=== PATIENT | male | born 1950 | race Caucasian/White ===

== ENCOUNTER 2019-06-17 09:25 | Outpatient (CLI) | payer MEDICARE, SELFPAY ==
--- NOTE | 2019-06-17 09:30 | ECG_ITS ---
Measurements Intervals [place] Rate: 62 P: 55 DE: 216 QRS: 3 QRSD: 102 T: 42 QT: 373 QTc: 380 Interpretive Statements SINUS RHYTHM WITH FIRST DEGREE AV BLOCK DELAYED PRECORDIAL R/S TRANSITION BASELINE ARTIFACT- I, II, AVR, AVL ABNORMAL ECG Electronically Signed On 06-17-2019 9:41:22 [employer]APANESE TUTOR by Sincere Bob D.O.
== END 2019-06-17 09:26 | disposition home or self-care (01) ==
LOC: ANHSURGERY 09:30
PROVIDERS: PCP Family Medicine; Visit Provider Surgery
DX: E78.00 Pure hypercholesterolemia, unspecified (principal); I44.0 Atrioventricular block, first degree
CPT/HCPCS: 93005

== ENCOUNTER 2019-07-01 01:18 | Day surgery (SDC) | payer MEDICARE, SELFPAY ==
[2019-06-12 12:55] VITALS: BMI 27.1
--- NOTE | 2019-07-01 06:57 | PM.SD ---
Same Day Admit/Disch: HPI History of Present Illness Chief complaint: Left Inguinal Hernia Narrative: Blue Delgadillo is a 68 year old male Who started having left testicular discomfort with some numbness in early April. he was seen in the office and found to have a left inguinal hernia. He had a right inguinal hernia repaired in 2009. Patient has as history of BPH was started on Flomax a week prior to the surgery. He is taken to surgery today for left inguinal hernia repair. [facility] Past Medical History Medical History BPH loc w/o ur obs/LUTS Dyslipidemia Lumbar radiculopathy Surgical History Surgical History H/O foot surgery Repair fracture left food with pin placement - 2008 History of left inguinal hernia repair History of tonsillectomy Family History Family History Father Kidney cancer, primary, with metastasis from kidney to other site Mother Parkinsons Other Carcinoma of colon Social History Social History Smoking status: Never smoker Second hand tobacco smoke exposure: No Alcohol intake: current Drinks per week: 3 Substance use: never Substance use type: does not use Gender identity (if verbalized by the patient): Male Spiritual care concerns: Yes Agree to blood products: Yes Same Day Admit/Disch: Med Pre-admit Medications Home Medications Medication Instructions Recorded Confirmed Type finasteride 5 mg tablet 5 mg PO DAILY 03/17/19 07/01/19 History pravastatin 40 mg tablet 40 mg PO DAILY 03/17/19 07/01/19 History tramadol 50 mg tablet 50 mg PO Q6H PRN 03/17/19 07/01/19 History sulindac 200 mg tablet 200 mg PO BID PRN #60 tablet 05/15/19 07/01/19 Rx docusate sodium 250 mg PO DAILY 06/12/19 07/01/19 History tamsulosin 0.4 mg capsule 0.4 mg PO DAILY #30 cap 06/12/19 07/01/19 Rx hydrocodone-acetaminophen 1 - 2 tablet PO Q6H PRN #7 tablet 07/01/19 Rx ibuprofen 600 mg PO Q6H PRN #14 tablet 07/01/19 Rx Exam Const: General: comfortable, no acute distress, alert and awake HENMT: Head: normocephalic and atraumatic Mouth: Yes Normal oral and palatal mucosa present Eyes: Conjunctivae: conjunctivae normal Pupils: Equal, round and reactive pupils present EOM: EOMs intact bilaterally Neck: Neck: normal visual inspection, no lymphadenopathy and nontender Resp: Effort & Inspection: normal respiratory effort Auscultation: clear to auscultation bilaterally Cardio: Rate: regular rate Rhythm: regular rhythm Heart sounds: no gallops, no murmurs and no rubs GI: Inspection: non-distended GI Palp: Yes Soft to palpation, No Tenderness to palpation present (GI), No Hepatomegaly present and No Splenomegaly present : Male General Exam: Yes hernia ( Small reducible left inguinal hernia) Penis: Yes normal penis Scrotum: scrotum normal Testes: Testes normal Skin: Lesions: no lesions Rashes: no rashes Neuro: General: no focal motor deficits and CN's II-XI intact bilaterally Cranial nerves: Yes Equal, round and reactive pupils present, Yes Bilaterally intact EOM present, Yes facial symmetry and Yes Midline tongue present Speech: normal speech Motor exam (neuro): 5/5 motor strength present throughout and Motor abnormalities not present Extrem: General: no clubbing, cyanosis or edema and edema Psych: Affect: normal affect Thought process: Normal thought process present Insight: Good insight present (Psych) DS: Summary Time Spent with Patient Time attestation: Total time spent providing and/or coordinating discharge services: DS: Diagnosis Admitting Diagnosis Admitting Diagnosis: Pure hypercholesterolemia, unspecified Discharge Diagnosis (1) Left inguinal hernia: Code(s): K40.90 - Unilateral inguinal hernia, without obstruction or gangrene, not specified as
[2019-07-01 08:07] VITALS: BP 122/77; PULSE 61; RESP 16; TEMP 36; O2SAT 100
[2019-07-01] MEDS: LACTATED RINGERS 1,000 ML 30 ML IV CONT ×2 (08:30→11:20)
--- NOTE | 2019-07-01 09:30 | WPDANESEPPF ---
Anes - Initial Pre Proc Eval Procedure: Operation Date: 07/01/19 10:00 Proposed Procedures p Left Inguinal Hernia Repair - Olegario Heredia MD Date/Time: 07/01/19 09:30 Surgeon: Olegario Heredia MD Pre Op Diagnosis: Left Inguinal Hernia Patient Data Age: 68 Gender: M Height: 6 ft Weight: 92.8 kg Last Vital Signs Temp 96.8 F L 07/01/19 08:07 Pulse 61 07/01/19 08:07 Resp 16 07/01/19 08:07 BP 122/77 07/01/19 08:07 Pulse Ox 100 07/01/19 08:07 Allergies Allergy/AdvReac Type Severity Reaction Status Date / Time No Known Allergies Allergy Mild Verified 07/01/19 08:41 Home Medications Medication Instructions Recorded Confirmed Type finasteride 5 mg tablet 5 mg PO DAILY 03/17/19 07/01/19 History pravastatin 40 mg tablet 40 mg PO DAILY 03/17/19 07/01/19 History tramadol 50 mg tablet 50 mg PO Q6H PRN 03/17/19 07/01/19 History sulindac 200 mg tablet 200 mg PO BID PRN #60 tablet 05/15/19 07/01/19 Rx docusate sodium 250 mg PO DAILY 06/12/19 07/01/19 History tamsulosin 0.4 mg capsule 0.4 mg PO DAILY #30 cap 06/12/19 07/01/19 Rx Patient hx anesthesia problems: none Family hx anesthesia problems: none PMFSH Past Medical History Medical History BPH loc w/o ur obs/LUTS Dyslipidemia Lumbar radiculopathy Surgical History Surgical History H/O foot surgery Repair fracture left food with pin placement - 2008 History of left inguinal hernia repair History of tonsillectomy Family History Family History Father Kidney cancer, primary, with metastasis from kidney to other site Mother Parkinsons Other Carcinoma of colon Social History Social History Smoking status: Never smoker Second hand tobacco smoke exposure: No Alcohol intake: current Drinks per week: 3 Substance use: never Substance use type: does not use Gender identity (if verbalized by the patient): Male Spiritual care concerns: Yes Agree to blood products: Yes Anes - Eval Final PreProcedure Day of Procedure 07/01/19 09:30 Patient weight: overweight Heart: regular rate and rhythm Lungs: clear to auscultation Airway: Mallampati scale class II Neurological: alert and oriented Last oral intake: >/= 8 hours ASA classification: II Emergent: no Anesthetic plan: proceed Anesthesia type and monitoring: general GIVS and standard monitoring Informed Consent: The patient's anesthetic plan and its attendant risks and benefits were discussed with the patient/family/POA. Questions were solicited and answers provided to the satisfaction of the patient/family/POA.
[2019-07-01] MEDS: ceFAZolin 2 GM/D5W 50 ML 2 GM/50 ML BAG IVPB (10:08)
[2019-07-01 11:20] VITALS: BP 103/65; PULSE 71; O2SAT 93
--- NOTE | 2019-07-01 11:23 | PM.PROC ---
Procedure Note - Detailed Date of procedure: 07/01/19 Pre-op diagnosis: Left Inguinal Hernia Left inguinal hernia Post-op diagnosis: other (Direct inguinal hernia) Procedure performed: Bassini repair left inguinal hernia Description of procedure: The patient was taken to surgery and IV sedation was administered. The left groin and genitalia were prepped and draped. The proposed incision was marked on the skin and then local anesthesia was infiltrated into the skin and the deeper subcutaneous tissues. Incision was made and dissection was carried down through Susan's fascia to the external oblique aponeurosis. Crossing veins were cauterized and divided. The external oblique aponeurosis was then exposed as was the external ring. Additional local anesthetic was infiltrated deep to the aponeurosis in the area of the spermatic cord and inguinal canal contents. We then opened the external oblique aponeurosis laterally and extended this incision medially through the external ring. The leaves of the aponeurosis were freed from the underlying inguinal canal contents. Care was taken not to injure the ileoinguinal nerve which was dissected out and left attached to the spermatic cord. The spermatic cord was then mobilized medially on a Tyrese drain. It was mobilized back to the internal ring. The direct hernia was dissected free from the spermatic cord. It was dissected back to its neck. It was a very large direct inguinal hernia encompassing almost the entire direct inguinal space. The sac was then incised circumferentially just off the neck. It was divided through the transversalis fascia circumferentially. The hernia sac was then dunked into the retroperitoneum. The inguinal canal floor was then reconstructed with interrupted sutures of 0 Ethibond. The sutures started medially and proceeded laterally. They were interrupted sutures that sutured the transversalis fascia to 1st the pubic tubercle, then to the reflection of the inguinal ligament. Sutures were placed until the internal ring was reconstructed such that it would barely admit the tip of a clamp. The spermatic cord and ileoinguinal nerve were then placed back in the inguinal canal floor. The external oblique aponeurosis was closed with interrupted 3 0 Vicryl suture. Susan's fascia was closed with interrupted 3 0 Vicryl suture. Four 0 Vicryl subcutaneous and subcuticular skin stitches were placed. The skin was finally closed with a running 4 0 Monocryl skin suture. The wound was dressed with Exofin surgical adhesive. Patient was awakened and taken to recovery in good condition. Sponge and needle counts were correct x2. Anesthesia: MAC and local (0.5% Marcaine mixed with Exparel) Surgeon: Olegario Heredia MD Fraud Analyst: Akiko CASTANON Estimated blood loss (mL): 5 Drains: No Packing: No Pathology: none sent Complications: None Condition: stable Disposition: same day Findings: Large direct inguinal hernia
[2019-07-01 11:50] VITALS: BP 106/66; PULSE 64
[2019-07-01 12:20] VITALS: BP 134/76; PULSE 59
[2019-07-01 12:50] VITALS: BP 128/78; PULSE 66
== END 2019-07-01 13:00 | disposition home or self-care (01) ==
PROVIDERS: PCP Family Medicine; Visit Provider Surgery
PROC: (CPT 49505; principal; 2019-07-01 10:00)
DX: K40.90 Unilateral inguinal hernia, without obstruction or gangrene, not specified as recurrent (principal); E78.5 Hyperlipidemia, unspecified; N40.0 Benign prostatic hyperplasia without lower urinary tract symptoms
CPT/HCPCS: 49505; A9270; C9290; J0690; J2250; J2405; J2704; J3010; J7120

== ENCOUNTER 2019-07-15 12:09 | Day surgery (SDC) | payer MEDICARE, SELFPAY ==
[2019-07-14 09:55] VITALS: BMI 26.9
[2019-07-15 11:57] VITALS: BP 135/84; PULSE 64; RESP 16; TEMP 36.5; O2SAT 100
[2019-07-15] MEDS: LACTATED RINGERS 1,000 ML 30 ML IV CONT (12:05)
--- NOTE | 2019-07-15 12:15 | WPDHPUPDATE1 ---
History and Physical Update Update Date/Time: 07/15/19 12:15 History and Physical has been reviewed, including an updated exam of the patient. There are NO changes in the patient's condition. Risks, benefits, and alternatives have been discussed and questions answered. Patient agrees to proceed with procedure.
--- NOTE | 2019-07-15 12:16 | WPDANESEPPF ---
Anes - Initial Pre Proc Eval Procedure: Operation Date: 07/15/19 14:00 Proposed Procedures p Evacuation Left Groin Hematoma - Olegario Heredia MD Date/Time: 07/15/19 12:16 Surgeon: Olegario Heredia MD Pre Op Diagnosis: Left Groin Post Op Hematoma Patient Data Age: 68 Gender: M Height: 6 ft Weight: 90 kg Allergies Allergy/AdvReac Type Severity Reaction Status Date / Time No Known Allergies Allergy Mild Verified 07/15/19 12:08 Home Medications Medication Instructions Recorded Confirmed Type finasteride 5 mg tablet 5 mg PO DAILY 03/17/19 07/15/19 History pravastatin 40 mg tablet 40 mg PO DAILY 03/17/19 07/15/19 History tramadol 50 mg tablet 50 mg PO Q6H PRN 03/17/19 07/15/19 History sulindac 200 mg tablet 200 mg PO BID PRN #60 tablet 05/15/19 07/15/19 Rx docusate sodium 250 mg PO DAILY 06/12/19 07/15/19 History tamsulosin 0.4 mg capsule 0.4 mg PO DAILY #30 cap 06/12/19 07/15/19 Rx ibuprofen 600 mg PO Q6H PRN #14 tablet 07/01/19 07/15/19 Rx Patient hx anesthesia problems: none Family hx anesthesia problems: none PMFSH Past Medical History Medical History BPH loc w/o ur obs/LUTS Dyslipidemia Lumbar radiculopathy Surgical History Surgical History H/O foot surgery Repair fracture left food with pin placement - 2008 History of left inguinal hernia repair History of tonsillectomy Family History Family History Father Kidney cancer, primary, with metastasis from kidney to other site Mother Parkinsons Other Carcinoma of colon Social History Social History Smoking status: Never smoker Second hand tobacco smoke exposure: No Alcohol intake: current Drinks per week: 3 Substance use: never Substance use type: does not use Gender identity (if verbalized by the patient): Male Spiritual care concerns: Yes Agree to blood products: Yes Anes - Eval Final PreProcedure Day of Procedure 07/15/19 12:16 Patient weight: overweight Heart: regular rate and rhythm Lungs: clear to auscultation Airway: Mallampati scale class II Neurological: alert and oriented Last oral intake: >/= 8 hours ASA classification: II Emergent: no Anesthetic plan: proceed Anesthesia type and monitoring: general GIVS and standard monitoring Informed Consent: The patient's anesthetic plan and its attendant risks and benefits were discussed with the patient/family/POA. Questions were solicited and answers provided to the satisfaction of the patient/family/POA.
--- NOTE | 2019-07-15 12:17 | P.OP_ITS ---
Procedure Note - Detailed Date of procedure: 07/15/19 Pre-op diagnosis: Left Groin Post Op Hematoma Postop hematoma left groin Post-op diagnosis: same Procedure performed: Evacuation left inguinal hematoma Description of procedure: The patient was taken to surgery and IV sedation was administered. Prep and drape was carried out. Local anesthesia was infiltrated over the old incision and into the deeper subcutaneous tissues. The previous incision was then opened reopened. Subcutaneous sutures were removed and the subcutaneous was opened as well. We then encountered the hematoma which was above the external oblique aponeurosis but deep to the subcutaneous closure. The hematoma was evacuated. There was probably 150 cc of hematoma. Once the hematoma was evacuated, we irrigated the area. I looked carefully for a site of bleeding and did not find one. It had most likely sealed with the pressure from the hematoma. We irrigated the area further. No evidence of bleeding or other problems was noted. A 19 [place] Rodrick drain was then placed over the external oblique aponeurosis closure. It was brought out through a separate stab incision after local was infiltrated at the site of its exit. The drain was sutured to the skin with 2 0 silk. The wound was then closed with subcutaneous interrupted 3 0 Vicryl suture. A more superficial subcutaneous interrupted 3 0 Vicryl suture layer was then closed. Finally, subcuticular interrupted 4 O Vicryl skin stitches were placed. Xeroform gauze and fluffs with Medipore tape were used to dress the wound. The drain was placed to bulb suction. Patient was awakened and taken to recovery in good condition. Sponge and needle counts were correct x2. Anesthesia: MAC and local (0.5% Marcaine with epinephrine) Surgeon: Olegario Heredia MD Apprentice Photographer: KINA Eid Estimated blood loss (mL): 5 Drains: Yes (19 [place] Rodrick drain) Packing: No Pathology: none sent Complications: None Condition: stable Disposition: same day Findings: Left groin hematoma
[2019-07-15] MEDS: ceFAZolin 2 GM/D5W 50 ML 2 GM/50 ML BAG IVPB (12:18)
[2019-07-15] MEDS: BUPIVACAINE/EPINEPHRINE 0.5% 30 ML VIAL INFILTRATE (12:21)
--- NOTE | 2019-07-15 13:00 | SUR.OPER ---
EBL:5CC
[2019-07-15 13:10] VITALS: BP 103/69; PULSE 62; RESP 12; O2SAT 99
[2019-07-15 13:40] VITALS: BP 105/68; PULSE 62; O2SAT 97
[2019-07-15 14:10] VITALS: BP 114/81; PULSE 59
== END 2019-07-15 14:33 | disposition home or self-care (01) ==
PROVIDERS: PCP Family Medicine; Visit Provider Surgery
PROC: (CPT 10140; principal; 2019-07-15 14:00)
DX: L76.34 Postprocedural seroma of skin and subcutaneous tissue following other procedure (principal); Y83.8 Other surgical procedures as the cause of abnormal reaction of the patient, or of later complication, without mention of misadventure at the time of the procedure; E78.5 Hyperlipidemia, unspecified; N40.0 Benign prostatic hyperplasia without lower urinary tract symptoms
CPT/HCPCS: 10140; A9270; J0690; J2250; J2270; J2704; J7120

== ENCOUNTER 2024-09-03 07:49 | Outpatient (CLI) | payer MEDICARE, SELFPAY ==
--- OUTSIDE RECORDS SUMMARY | 2024-09-03 07:59 | XMS_ITS | Clinical Summary ---
Author Organization [facility] Address [address] [place] [address] Care Team Providers Care Toby Maker Name Role Phone Emmanuelle Garrido MD Primary Care Provider Allergies No known active allergies Medications pravastatin (PRAVACHOL) 40 mg tablet 03/08/2017 Active sulindac (CLINORIL) 200 mg tablet 03/08/2017 Active traMADol (ULTRAM) 50 mg tablet 02/19/2017 Active finasteride (PROSCAR) 5 mg tabletIndication s:benign prostatic hyperplasia with lower urinary tract sx Take 5 mg by mouth daily. 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/2021 Assessment & Plan (11/09/2021 8:42 AM CDT): Pepcid 40 mg at bedtime Call for GI referral if no improvement in 2-3 months Dysfunction of both eustachian tubes 11/09/2021 Assessment & Plan (11/09/2021 8:42 AM CDT): Pepcid 40 mg at bedtime Call for GI referral if no improvement in 2-3 months Sensorineural hearing loss ( SNHL) of left ear with restricted hearing of right ear 01/18/2021 Assessment & Plan (11/09/2021 8:42 AM CDT): Continue Hearing aids Assessment & Plan (01/18/2021 2:37 PM CDT): Proceed with Hearing Aid consultation Avoid ear cleaning techniques Impacted cerumen of left ear 01/18/2021 Assessment & Plan (01/18/2021 2:37 PM CDT): Proceed with Hearing Aid consultation Avoid ear cleaning techniques Bilateral hearing loss 06/24/2020 Assessment & Plan (06/24/2020 10:27 AM CYTOTECHNOLOGIST/HISTOTECHNOLOGIST): Hearing test - Oneil Chapman Bilateral impacted cerumen 06/24/2020 Surgical History Surgery Date Site/Laterality Comments HERNIA REPAIR 04/23/2008 - 04/22/2009 ANKLE FRACTURE SURGERY 04/23/2008 - 04/22/2009 Left COLONOSCOPY 2009 POLYPECTOMY Medical History Medical History Date Comments Colon polyp Family History Medical History Relation Name Comments Kidney cancer Father Relation Name Status Comments Father Social History Tobacco Use Types Packs/Day Years Used Date Smoking Tobacco: Never Smokeless Tobacco: Never Alcohol Use Standard Drinks/Week Comments Yes 0 (1 standard drink = 0.6 oz pur e alcohol) Sex and Gender Information Value Date Recorded Sex Assigned at Not on file Legal Sex Male 1:30 PM CYTOTECHNOLOGIST/HISTOTECHNOLOGIST Gender Identity Not on file Sexual Orientation Not on file Obstetrics History Last Filed Vital Signs Vital Sign Reading Time Taken Comments Blood Pressure 124/82 11/09/2021 8:26 AM CDT Pulse 67 11/09/2021 8:26 AM CDT Temperature 35.8 C (96.5 F) 11/09/2021 8:26 AM CDT Respiratory Rate 16 11/09/2021 8:26 AM CDT Oxygen Saturation 99% 11/09/2021 8:26 AM CDT Inhaled Oxygen Concentration - - Weight 92.1 kg (203 lb) 11/09/2021 8:26 AM CDT Height 182.9 cm (6') 11/09/2021 8:26 AM CDT Body Mass Index 27.53 11/09/2021 8:26 AM CDT Plan of Treatment Health Maintenance Due Date Last Done Comments Depression Screening 1950 Fall Risk Assessment 1950 Hepatitis C Screening 1950 Hepatitis B Screening 09/15/1969 Zoster Vaccine (1 of 2) 09/15/2001 DTaP/Tdap/Td Vaccine (1 - Tdap) 04/21/2011 1 Abdominal Aortic Aneurysm (AAA) Screen 09/15/2016 Well Visit 65+ 09/15/2016 Influenza Vaccine (#1) 2023 02/16/2020 Pneumococcal vaccine 65+ (3 of 3 - PCV20 or PCV21) 04/10/2024 04/10/2019, 09/06/2016 Colon Cancer Screening-Colonoscopy 05/16/20272017 Colon Cancer Screening-CT Colonography Discontinued Colon Cancer Screening-DNA Stool Discontinued 05/16/19 Colon Cancer Screening-FIT Discontinued 05/16/2017 Colon Cancer Screening-Sigmoidoscopy Discontinued 04/24 Medical Devices Implanted Type Area Line Walker Device Identifier Shelf Expiration Date Model / Serial / Lot Other-See Comments Other - see comments Left: Ankle Other Description:Two screws in le ft ankle. Procedures Procedure Name Priority Date/Time Associated Diagnosis Comments COLONOSCOPY 05/16/2017 10:05 AM CYTOTECHNOLOGIST/HISTOTECHNOLOGIST from Last 3 Months or Most Recently Relevant to Health Maintenance Results * COLONOSCOPY (05/16/2017 10:05 AM CYTOTECHNOLOGIST/HISTOTECHNOLOGIST) Anatomical Region Laterality Modality Other Narrative Procedure Note Jeff Case MD - 05/16/2017 10:05 AM CST [facility] Patient Name: Blue Delgadillo Procedure Date: 05/16/2017 10:05 AM Date of : 1950 Admit Type: Outpatient Age: 66 Gender: Male Attending MD: Jeff Case MD Room: [facility] RO[facility] 2 Note Status: Finalized Procedure: Colonoscopy Indications: Screening for colorectal malignant neoplasm Referring MD: Emmanuelle Garrido M.D. Providers: Jeff Case MD Impression: - The entire examined colon is normal. - Small internal hemorrhoids. - No specimens collected. Recommendation: - Discharge patient to home. - Continue present medications. - Repeat colonoscopy in10 years. Medicines: Monitored Anesthesia Care Complications: No immediate complications. Estimated Blood Loss: Estimated blood loss: none. Procedure: Pre-Anesthesia Assessment: - Prior to the procedure, a History and Physical was performed, and patient medications and allergieswere reviewed. The patient's tolerance of previous anesthesia was also reviewed. The risks and benefitsof the procedure and the sedation options and riskswere discussed with the patient. All questions were answered, and informed consent was obtained. Prior Anticoagulants: The patient has taken no previous anticoagulant or antiplatelet agents. ASA Grade Assessment: II - A patient with mild systemicdisease. After reviewing the risks and benefits, the patientwas deemed in satisfactory condition to undergo the procedure. The benefits, risks and alternatives of theprocedure and sedation were discussed and informed consent was obtained. All questions were answered. Please referto the signed informed consent document in the medical record. The scope was passed under direct vision.The Pediatric Colonoscope PCF-H190L [id number] was introduced through the anus and advanced to the the cecum, identified by appendiceal orifice andileocecal valve. The colonoscopy was performed without difficulty. The patient tolerated the procedurewell. The quality of the bowel preparation wasexcellent. Findings: The perianal and digital rectal examinations were normal. The colon (entire examined portion) appeared normal. No polyps and no mass lesions. One inverted diverticulum noted in the ascending colon. retroflexion in the rectum showed small hemorrhoids. Electronically signed by Jeff Case M.D. Jeff Case MD 05/16/2017 10:49:20 AM Number of Addenda: 0 Note Initiated On: 05/16/2017 10:05 AM Procedure Code(s): --- Professional --- G0121, Colorectal cancer screening; colonoscopy on individual not meeting criteria for high risk Diagnosis Code(s): --- Professional --- Z12.11, Encounter for screening for malignant neoplasm of colon CPT copyright 2014 [employer]. All rights reserved. The codes documented in this report are preliminary and upon medical billing coder reviewmay be revised to meet current compliance requirements. Recognized by the [employer] for promoting quality in endoscopy Jeff Case MD ENDOSCOPY PROCEDURES Final Result from Last 3 Months or Most Recently Relevant to Health Maintenance Insurance MEDICARE [employer] SENIOR SUPPLEMENT Advance Directives For more information, please contact: [phone] * Full Code (Latest Code Status on File) Date Activated Date Inactivated Comments 05/16/2017 8:48 AM 05/16/2017 1:33 PM Care Teams Toby Maker Relationship Specialty Start Date End Date Emmanuelle Garrido MD PCP - General 05/14/17
--- OUTSIDE RECORDS SUMMARY | 2024-09-03 07:59 | XMS_ITS | Clinical Summary ---
Author Organization [facility] Address [address] [place] [address] Phone Care Team Providers Care Business Systems Developer Name Role Phone Emmanuelle Garrido MD Primary Care Provider Social History Tobacco Use Types Packs/Day Years Used Date Smoking Tobacco: Never Assessed Sex and Gender Information Value Date Recorded Sex Assigned at Not on file Legal Sex Male 11:31 PM CDT Gender Identity Not on file Sexual Orientation Not on file Plan of Treatment Health Maintenance Due Date Last Done Comments Hepatitis C Virus (HCV) Screening 1950 TdaP Immunization 1950 Colonoscopy 09/15/1996 Colorectal Cancer Screening 09/15/1996 Cologuard 09/15/2001 Immunochemical Fecal Occult Blood 09/15/2001 Zoster Immunization (1 of 2) 09/15/2001 Pneumococcal Immunization (50+ years) (2 of 2 - PCV) 09/06/2017 09/06/2016 Influenza Immunization (#1) 2023 SARS-COV-2 Immunization ( season) 2023 08/09/2021, 02/23/2021, 06/29/2020, Additional history exists Respiratory Syncytial Virus (RSV) Immunization (Adult) (1 - 1-dose 75+ series) 09/15/2026 DTaP/Tdap/Td Immunization Discontinued 04/20/2011 Pneumococcal Immunization Combined Discontinued 09/06/2016 Hepatitis B Immunization Aged Out No longer eligible based on patient's age to complete this topic Meningococcal Immunization (ACWY) Aged Out No longer eligible based on patient's age to complete this topic Rotavirus Immunization Aged Out No lo nger eligible based on patient's age to complete this topic Insurance MEDICARE Member Subscriber Plan / Payer (Ef fective 2018-Present) Name:Blue Delgadillo Member ID:[id number] Relation to Subscriber:Self Name:Blue Delgadillo Subscriber ID:[id number] Payer ID:[id number] Group ID:Not on file Type:Not on file Address: [facility] [address] [facility] [employer] [facility], [facility] [place] [address] [facility] Care Teams Business Systems Developer Relationship Specialty Start Date End Date Emmanuelle Garrido MD PCP - General Family Medicine 01/28/18
--- OUTSIDE RECORDS SUMMARY | 2024-09-03 07:59 | XMS_ITS | Referral Summary ---
Author Organization [facility] Address [address] [place] [address] Care Team Providers Care Feller Seam Operator Name Role Phone Emmanuelle Garrido MD Primary [...] 06/24/2020 Assessment & Plan (06/24/2020 10:27 AM PROCESS MAINTENANCE TECHNICIAN): Hearing test - Oneil Chapman Bilateral impacted cerumen 06/24/2020 Social History Tobacco Use Types Packs/Day Years Used Date Smoking Tobacco: Never Smokeless Tobacco: Never Alcohol Use Standard Drinks/Week Comments Yes 0 (1 standard drink = 0.6 oz pur e alcohol) Sex and Gender Information Value Date Recorded Sex Assigned at Not on file Legal Sex Male 1:30 PM PROCESS MAINTENANCE TECHNICIAN Gender Identity Not on file Sexual Orientation Not on file Last Filed Vital Signs Vital Sign Reading [...] 11/09/2021 8:26 AM CDT Plan of Treatment Not on file Medical Devices Implanted Type Area Poll Clerk Device Identifier Shelf Expiration Date Model / Serial / Lot Other-See Comments Other - see comments Left: Ankle Other Description:Two screws in le ft ankle. Procedures Procedure Name Priority Date/Time Associated Diagnosis Comments COLONOSCOPY 05/16/2017 10:05 AM PROCESS MAINTENANCE TECHNICIAN from Last 3 Months or Most Recently Relevant to Health Maintenance Results * COLONOSCOPY (05/16/2017 10:05 AM PROCESS MAINTENANCE TECHNICIAN) Anatomical Region Laterality Modality Other Narrative Procedure Note Jeff Case MD - 05/16/2017 10:[address] [facility] Patient Name: Blue Delgadillo Procedure Date: 05/16/2017 10:05 AM Date of : 1950 Admit Type: Outpatient Age: 66 Gender: Male Attending MD: Jeff Case MD Room: [facility] ENDOSCOPY ROOM 2 Note Status: Finalized [...] passed under direct vision.The Pediatric Colonoscope PCF-H190L [id number] was introduced through the anus and advanced [...] malignant neoplasm of colon CPT copyright 2014 [employer]. All rights reserved. The codes documented in this report are preliminary and upon reproductive endocrinologist reviewmay be revised to meet current compliance requirements. Recognized by the [employer] for promoting quality in endoscopy Jeff Case MD ENDOSCOPY PROCEDURES Final Result from Last 3 Months or Most Recently Relevant to Health Maintenance Insurance MEDICARE [employer] SENIOR SUPPLEMENT Advance Directives For more information, please contact: [phone] * Full Code (Latest Code Status on File) Date Activated Date Inactivated Comments 05/16/2017 8:48 AM 05/16/2017 1:33 PM Care Teams Feller Seam Operator Relationship Specialty Start Date End Date Emmanuelle Garrido MD PCP - General 05/14/17
== END 2024-09-03 07:50 | disposition home or self-care (01) ==
PROVIDERS: PCP Family Medicine; Visit Provider Otolaryngology Otolaryngology/Facial Plastic Surgery
DX: H90.3 Sensorineural hearing loss, bilateral (principal)
CPT/HCPCS: 92557; 92567